=== PATIENT | female | born 1990 | race Caucasian/White ===

== ENCOUNTER 2022-01-04 06:58 | Emergency (ER) | payer OTHER ==
[~2022-01-04] VITALS: Ht 160 cm; Wt 88.4 kg
[~2022-01-04 06:58] MED LIST: IBUPROFEN400 MG PO; SEPTRA DS TABL1 EACH PO
[2022-01-04] MEDS ORDERED: PRENATAL MULTI1 EAC3 PO (07:21)
== END 2022-01-04 09:22 | disposition home or self-care (01) ==
LOC: ED 06:58
DX: M79.602 Pain in left arm (principal); M79.601 Pain in right arm; E87.6 Hypokalemia; F15.90 Other stimulant use, unspecified, uncomplicated; F17.200 Nicotine dependence, unspecified, uncomplicated; Z88.8 Allergy status to other drugs, medicaments and biological substances; Z91.011 Allergy to milk products; Z79.899 Other long term (current) drug therapy
CPT/HCPCS: 36415; 80053; 81001; 83735; 84702; 84703; 85025; 96374; 99283-25; J1885

== ENCOUNTER 2022-02-13 18:57 | Emergency (ER) | payer OTHER ==
[~2022-02-13] VITALS: Ht 160 cm; Wt 83.5 kg
[~2022-02-13 18:57] MED LIST changes: +PRENATAL MULTI1 EAC3 PO
[2022-02-13] MEDS ORDERED: HYDROCODON-ACE1 EA10 PO (22:48)
== END 2022-02-13 23:00 | disposition home or self-care (01) ==
LOC: ED 18:57
DX: R07.89 Other chest pain (principal); F17.200 Nicotine dependence, unspecified, uncomplicated; Z91.040 Latex allergy status; Z88.8 Allergy status to other drugs, medicaments and biological substances
CPT/HCPCS: 36415; 71046; 71260; 80048; 84703; 85025; 85379; 99285-25; J1885; Q9967

== ENCOUNTER 2022-04-22 21:03 | Emergency (ER) | payer OTHER ==
[~2022-04-22] VITALS: Ht 160 cm; Wt 81.8 kg
[~2022-04-22 21:03] MED LIST changes: +HYDROCODON-ACE1 EA10 PO
== END 2022-04-23 01:22 | disposition home or self-care (01) ==
LOC: ED 21:03
DX: T40.1X1A Poisoning by heroin, accidental (unintentional), initial encounter (principal); F17.200 Nicotine dependence, unspecified, uncomplicated; Z88.6 Allergy status to analgesic agent; Z91.040 Latex allergy status; Y92.9 Unspecified place or not applicable
CPT/HCPCS: 36415; 84703; 99284

== ENCOUNTER 2024-04-01 01:42 | Observation (INO) | payer OTHER ==
[~2024-04-01] VITALS: Ht 162.6 cm; Wt 82.6 kg
[2024-04-01] VITALS (13 sets, daily range): BP systolic 100–122; BP diastolic 58–90
[2024-04-01] MEDS ORDERED: SULFAMETHOXAZO1 EAC1 PO (02:02)
[2024-04-01] MEDS ORDERED: VANCOMYCIN HCL IV ONE (02:15)
[2024-04-01] MEDS ORDERED: DEXTROSE 5% IV ONE (02:15)
[2024-04-01 02:22] LABS: BASOPHILS 0.3 % (0-2); EOSINOPHILS 2.3 % (0-6); HEMATOCRIT 33.6 % (35.0-50.0); HEMOGLOBIN 11.4 g/dL (12.0-18.0); LYMPHOCYTES 32.9 % (24-44); MCH 30.5 (27-36); MCV 89.7 fl (81-99); MONOCYTES 7.4 % (0-12); NEUTROPHILS 57.1 % (39-80); PLATELET COUNT 311 K/uL (140-440); RBC 3.74 M/ul (4.3-5.7); RDW 15.1 (10.5-15.0)
[2024-04-01 02:39] LABS: ALBUMIN 3.3 g/dL (3.4-5.0); ALBUMIN/GLOBULIN RATIO 0.75 (1.1-2.4); ANION GAP 12.3 (7-21); BILIRUBIN, TOTAL 0.4 ng/dL (0.2-1.0); BUN/CREATININE RATIO 16.21 (6.0-28.6); CALCIUM 8.9 mg/dL (8.5-10.1); CREATININE, SERUM 0.74 mg/dL (0.55-1.02); POTASSIUM 3.3 mmol/L (3.5-5.1); PROTEIN, TOTAL 7.7 g/dL (6.4-8.2)
[2024-04-01 02:42] LABS: LACTIC ACID, BLOOD 0.5 mmol/L (0.4-2.0)
[2024-04-01] MEDS ORDERED: DEXTROSE 5% 500 ML IV ONE (02:49)
[2024-04-01 02:52] LABS: BILIRUBIN, URINE NEGATIVE (negative); BLOOD/HGB, URINE NEGATIVE (Negative); KETONE, URINE NEGATIVE (Negative); LEUK ESTERASE, URINE NEGATIVE (negative); NITRITE, URINE NEGATIVE (negative)
[2024-04-01 03:06] LABS: AMPHETAMINES, URINE POSITIVE (NEGATIVE); BARBITURATES, URINE NEGATIVE (NEGATIVE); BENZODIAZEPINE, URINE NEGATIVE (NEGATIVE); BUPRENORPHINE, URINE NEGATIVE (NEGATIVE); CANNABINOID, URINE NEGATIVE (NEGATIVE); COCAINE, URINE NEGATIVE (NEGATIVE); ECSTASY, URINE POSITIVE (NEGATIVE); FENTANYL, URINE POSITIVE (NEGATIVE); METHADONE, URINE NEGATIVE (NEGATIVE); OPIATES, URINE NEGATIVE (NEGATIVE); OXYCODONE, URINE NEGATIVE (NEGATIVE); PHENCYCLIDINE, URINE NEGATIVE (NEGATIVE)
[2024-04-01] MEDS ORDERED: LACTATED RINGER'S 1,000 ML IV SCH ×3 (04:00→09:00)
[2024-04-01] MEDS ORDERED: POTASSIUM CHLORIDE 10 MEQ TABCR PO ONE (04:00)
[2024-04-01] MEDS ORDERED: ondansetron HCL 4 MG/2 ML VIAL IV PRN ×3 (04:45→13:30)
[2024-04-01] MEDS ORDERED: MORPHINE SULFATE 10 MG/ML VIAL IV PRN ×2 (04:45→13:30)
[2024-04-01] MEDS ORDERED: ACETAMINOPHEN 500 MG TAB PO SCH (06:00)
[2024-04-01] MEDS ORDERED: MEROPENEM 1,000 MG in SODIUM CHLORIDE 0.9% 100 ML IV SCH (06:00)
--- NOTE | 2024-04-01 06:00 | NUR ---
smoke jumper supervisor notified of new med order for Merren on this admission
--- NOTE | 2024-04-01 06:19 | NUR ---
0520 - PT ADMITTED TO ROOM 108 FROM ER VIA STRETCHER, DROWSY BUT ANSERES TO NAME ONLY. ABLE TO TRANSFER FROM GOURNEY TO BED W/O HELP AND ONLY 2 CUES. GOES BACK TO SLEEP RIGHT AWAY. UNABLE TO COMPLETE SOME ADMIT QUESTIONS AT THIS TIME ANSWERED YES NO WUESTIONS ONLY DURING ASSESSMENT, SHE WOULD GO BACK TO SLEEP. ON ROOM AIR, CLEAR LUNGS, OBESE, R LOW ABD REDNESS, WARM AND TENDER TO TOUCH, CRATER LIKE ULCER WITH SS DRAINAGE PRESENT. PT KEPT SCRATCHING AND TOUCHING WOUND. ABD APPLIED ON AT NURSES DISCRETION TO PREVENT CROSS CONTAMINATION. PROCEDURE EXPLAINED, NO ANSWER, . IVF INFUSING RFA. AWARE OF NPO STATUS BUT UNKNOWN COMPREHENSION SHE ONLY ANSWERED "OK" WHEN INSTRUCTED ON NPO. PT WAS + FOR METH/FENTANYL AND EXSTASY PER ADMIT LABS. AWARE OF NAME ONLY AT THIS TIME, CLEAR TO SLURRY SPEECH PRESENT, OPENS EYES AND HAS TREMORS LIKE AND SITS UP IN BED WITH OPEN EYES THEN GOES BACK DOWN, NO TREMORS SOON HE TOUCHES THE BED, NO DISTRESS OR S/SX PAIN AT THIS TIME. npo EXCEPT MEDS, DID NOT PASS BEDSIDE SWALLOW EVALUATION AT [facility], SO WILL NOT BE GIVING HER 0600 SCHEDULE TYLENOL UNTIL PT MORE AWAKE, JUST KEPT MOUTH OPEN WHEN TRYING TO DO ORAL CARE. BED ALRM PER NURSING JUDGEMENT AT THIS TIME.
--- NOTE | 2024-04-01 07:10 | NUR ---
REPORT RECEIVED FROM SYDNEE VALENTINE. PT RESTING IN BED WITH EYES CLOSED, RR 18. ASSUMING CARE OF PT. CALL LIGHT WITHIN REACH.
--- NOTE | 2024-04-01 07:50 | NUR ---
PT IV BEEPING, PT SLEEPING WITH ARM BENT. PT ASKED TO TURN OVER AND STRAIGHTEN ARM IT WAS BENT AND UNABLE TO INFUSE ABX THAT ARE RUNNING. PT TURNED OVER AND WENT BACK TO SLEEP RIGHT AWAY. CALL LIGHT WITHIN REACH.
[2024-04-01] MEDS ORDERED: FAMOTIDINE 20 MG/ 2 ML VIAL IV SCH ×2 (09:00)
[2024-04-01] MEDS ORDERED: NICOTINE 21 MG/24 HR 1 EA TDSY TD SCH (09:00)
[2024-04-01] MEDS ORDERED: HYDROmorphone HCL 1 MG/ML SYR IV PRN (09:00)
--- NOTE | 2024-04-01 09:41 | NUR ---
PT APPEARS VERY DROWSY, AWAKENS TO TOUCH AND SOUND. PT STATES PAIN AROUND ABCESS IS 6/10, STATES SHE DOES NOT WANT ANY PAIN MEDICATION AT THIS TIME. PT A+O X4. PT HAS NOT AMBULATED YET THIS MORNING, JUMPS WHEN AWOKEN. ABDOMEN CONTINUES TO HAVE GENERALIZED SWELLING, REDNESS AROUND ABCESS, PT STATES ARE IS VERY TENDER TO TOUCH. PT UPDATED ON POC, VERBALIZES UNDERSTANDING. PT STATES NO FURTHER NEEDS AT THIS TIME, CALL LIGHT WIHTIN REACH.
--- NOTE | 2024-04-01 11:14 | NUR ---
CHG WIPEDOWN COMPLETE FOR PRE-OP. PT STATES SHE IS IN PAIN DURING WIPEDOWN, REFUSES PAIN MEDICATION. PT FALLS ASLEEP AFTER WIPEDOWN. CALL LIGHT WITHIN REACH.
[2024-04-01] MEDS ORDERED: propofoL 200 MG/20 ML VIAL ONE (12:04)
[2024-04-01] MEDS ORDERED: ondansetron HCL 4 MG/2 ML VIAL ONE (12:04)
[2024-04-01] MEDS ORDERED: LACTATED RINGER'S 1,000 ML IV ONE (12:04)
[2024-04-01] MEDS ORDERED: FAMOTIDINE 20 MG/ 2 ML VIAL ONE (12:04)
[2024-04-01] MEDS ORDERED: MIDAZOLAM HCL 2 MG/2 ML VIAL ONE (12:04)
[2024-04-01] MEDS ORDERED: METOCLOPRAMIDE HCL 10 MG/2 ML SDV ONE (12:04)
[2024-04-01] MEDS ORDERED: DEXAMETHASONE SOD PHOS 4 MG/ML VIAL ONE (12:04)
[2024-04-01] MEDS ORDERED: KETOROLAC TROMETHAMINE 30 MG/ML VIAL ONE (12:04)
[2024-04-01] MEDS ORDERED: fentaNYL citrate 100 MCG/2 ML VIAL ONE (12:04)
--- NOTE | 2024-04-01 12:20 | NUR ---
GAUGER CHIEF DELIVERY TO BEDSIDE. PT STATES ALL QUESTIONS HAVE BEEN ANSWERED AT THIS TIME. PT DENIES NEED FOR PAIN MEDICATION AT THIS TIME. CALL LIGHT WITHIN REACH.
--- NOTE | 2024-04-01 12:33 | NUR ---
DAY SURGERY TO FLOOR TO TAKE PT.
[2024-04-01] MEDS ORDERED: CIPROFLOXACIN 500 MG TAB PO SCH (13:28)
[2024-04-01] MEDS ORDERED: fentaNYL citrate 50 MCG/ML SDV IV PRN (13:30)
[2024-04-01] MEDS ORDERED: NALOXONE HCL 0.4 MG SYR IV PRN (13:30)
[2024-04-01] MEDS ORDERED: IBLOOD GLUCOSE TEST STRIP 1 EA TEST VI PRN (13:30)
[2024-04-01] MEDS ORDERED: droPERidol 5 MG/2 ML VIAL IV PRN (13:30)
[2024-04-01] MEDS ORDERED: METOCLOPRAMIDE HCL 10 MG/2 ML SDV IV PRN (13:30)
[2024-04-01] MEDS ORDERED: PROCHLORPERAZINE EDISYLATE 10 MG/2 ML VIAL IV PRN (13:30)
--- NOTE | 2024-04-01 13:32 | NUR ---
04/01/24 1332 Fanny Rosales 1319 PT ARRIVED IN PACU NON RESPONSIVE TO NOXIOUS STIMULI WITH OPA IN PLACE. CHIN LIFT HELD BY RN. 1324 PT REACTIVE. OPA REMOVED.
[2024-04-01] MEDS ORDERED: MEROPENEM 500 MG in SODIUM CHLORIDE 0.9% 100 ML IV SCH (14:00)
--- NOTE | 2024-04-01 14:15 | NUR ---
PT ARRIVES TO FLOOR WITH FIELD CARE COORDINATOR. RECEIVED REPORT ROSIE BURNS RN. PT APPEARS DROWSY, AWAKENS TO TOUCH. SCDs PLACED, CPOX IN PLACE. DRESSING ON RLQ C/D/I. PT STATES NO NEEDS AT THIS TIME, CALL LIGHT WITHIN REACH.
[2024-04-01] MEDS ORDERED: ACETAMINOPHEN 500 MG TAB PO PRN (14:30)
[2024-04-01] MEDS ORDERED: HYDROCODONE/ACETA 5/325 TAB PO PRN (14:30)
--- NOTE | 2024-04-01 14:51 | NUR ---
FAMILY AT THE BEDSIDE. PT AND FAMILY HAVE QUESTIONS ABOUT POC. FAMILY AND PT STATE ALL QUESTIONS HAVE BEEN ANSWERED. PT DENIES ANY CURRENT NEEDS, CALL LIGHT WITHIN REACH.
--- NOTE | 2024-04-01 15:20 | NUR ---
PT CONTINUES TO APPEAR TO BE DROWSY, RESPONDS TO TOUCH. PT STATES SHE DOES NOT FEEL ANY PRESSURE OR LIKE SHE NEEDS TO VOID AT THIS TIME. PT TAKES PO MEDICATION W/O DIFFICULTY. PT STATES NO FURTHER NEEDS AT THIS TIME, FALLS ASLEEP AFTER ANSWERING THIS RN'S QUESTIONS. CALL LIGHT WITHIN REACH.
--- NOTE | 2024-04-01 15:37 | NUR ---
PT ABLE TO AMBULATE TO BSC WITH SBA. VOIDS, AMBULATES TO BED WITH SBA.
--- NOTE | 2024-04-01 16:23 | NUR ---
PT EATS 100% OF SNACK, TOLERATES WELL. PT DENIES NAUSEA. PT RATES PAIN 7/10 AT THIS TIME, REFUSES PAIN MEDICATION. PT STATES NO FURTHER NEEDS, CALL LIGHT WITHIN REACH.
--- NOTE | 2024-04-01 16:38 | NUR ---
THIS RN SPEAKS WITH DR. MACDONALD ON THE TELEPHONE ABOUT LAB RESULTS. STATES NO NEW ORDERS AT THIS TIME.
[2024-04-01] MEDS ORDERED: metroNIDAZOLE 250 MG TAB PO SCH (17:00)
--- NOTE | 2024-04-01 17:08 | NUR ---
PT SITTING UP IN BED TO EAT DINNER, TAKES PO MEDICATION W/O DIFFICULTY. PT STATES SHE FEELS LIGHTHEADED, BP WNL, PT DENIES ANY OTHER SYMPTOMS AT THIS TIME. EDUCATION ON SITTING UP FOR THE FIRST TIME TODAY CONTRIBUTING TO LIGHTHEADEDNESS, PT VERBALIZES UNDERSTANDING. PT STATES NO FURTHER NEEDS AT THIS TIME, CALL LIGHT WITHIN REACH.
--- NOTE | 2024-04-01 17:46 | NUR ---
PT FINISHES DINNER TRAY. STATES PAIN IS 6/10, REQUESTS PRN NORCO, GIVEN 1 TABLET OF PRN NORCO 5MG/325MG. PT REQUESTS MORE ICE WATER AND WARM BLANKET, GIVEN. PT DENIES ANY OTHER NEEDS AT THIS TIME, CALL LIGHT WITHIN REACH.
--- NOTE | 2024-04-01 19:55 | NUR ---
REPORT RECEIVED FROM DAY RN. PATIENT IS RESTING IN BED WITH EYES CLOSED. RESPIRATIONS EVEN AND UNLABORED. PATIENT ARROUSES TO SOUND AND TOUCH. DENIES ANY PAIN AT THIS TIME. DRESSING TO RLQ REMAINS INTACT WITH MINIMIAL DRAINAGE SHODOWING. IVF INFUSING WITH NO ISSUES OR CONCERNS. CALL LIGHT WITHIN REACH.
--- NOTE | 2024-04-01 20:17 | NUR ---
PATIENT IS RESTING IN BED WITH EYES CLOSED. VSS. HS MEDICATIONS GIVEN. IVF RUNNING WITH NO ISSUES. IV SITE PATENT. PATIENT REQUESTING CRACKERS. CRACKERS GIVEN. LUNG SOUNDS CTA, BOWEL TONES PRESENT X [address] PL[address] DRESSING TO RLQ REMAIN INTACT WITH MINIMIAL SHADOWNING OF DRAINAGE AT THIS TIME. NO FURTHER NEEDS AT THIS TIME. CALL LIGHT WITHIN REACH.
[2024-04-01] MEDS ORDERED: FAMOTIDINE 20 MG TAB PO SCH (21:00)
--- NOTE | 2024-04-01 22:24 | NUR ---
IV PUMP ALARMING. DISTAL OCCLUSION. PATIENT ARM REPOSITIONED AND NO FURTHER ISSUES. NICOTINE PATCH REMOVED PER SCHEDULE. NO C/O PAIN. CALL LIGHT WITHIN REACH.
[2024-04-02 01:36] VITALS: BP 118/73
--- NOTE | 2024-04-02 01:41 | NUR ---
iv pump alarming, in room to assess. new bag lr infusing as directed, iv site wnl. vs collected and charted, primary rn remains in room to assist pt to bathroom. board also updated.
--- NOTE | 2024-04-02 01:59 | NUR ---
PATIENT OOB AND AMBULATED TO BATHROOM WITH 1 PA STAND BY ASSIST. TOLLERATED WELL. VOIDING QUANITY SUFFICIENT. VSS. C/O PAIN 08/01. PRN MEDICATION GIVEN. IV SITE PATENT. REQUESTING CRACKERS. CRACKERS GIVEN. SURGICAL SITE DRESSING REMAINS INTACT, WINDOW OF RED DRAINAGE ON DRESSING. ABD PAD SECURED WITH PAPER TAPE APPLIED OVER EXISTING DRESSING TO REINFORCE. NO FURTHER NEEDS AT THIS TIME. CALL LIGHT WITHIN REACH.
--- NOTE | 2024-04-02 03:58 | NUR ---
PATIENT RESTING IN BED WITH EYES CLOSED. RESPIRATIONS EVEN AND UNLABORED. CALL LIGHT WITHIN REACH.
[2024-04-02 05:29] VITALS: BP 104/68
[2024-04-02 05:31] VITALS: BP 104/68
--- NOTE | 2024-04-02 05:32 | NUR ---
PATIENT RESTING IN BED WITH EYES CLOSED. ARROUSES TO SOUND AND TOUCH. VSS. DRESSING TO RLQ REMAINS INTACT. NO DRAINAGE NOTED BREAKING THROUGH REINFORCED ABD PAD. NO C/O PAIN AT THIS TIME. NO FURTHER NEEDS CALL LIGHT WITHIN REACH.
[2024-04-02 05:33] LABS: BASOPHILS 0.3 % (0-2); EOSINOPHILS 1.8 % (0-6); HEMOGLOBIN 10.6 g/dL (12.0-18.0); LYMPHOCYTES 40.3 % (24-44); MCH 30.2 (27-36); MCHC 33.2 g/dl (30-36); MCV 90.9 fl (81-99); MONOCYTES 7.2 % (0-12); NEUTROPHILS 50.4 % (39-80); PLATELET COUNT 239 K/uL (140-440); RBC 3.53 M/ul (4.3-5.7); RDW 15.1 (10.5-15.0)
[2024-04-02 05:56] LABS: ALBUMIN 2.4 g/dL (3.4-5.0); ALBUMIN/GLOBULIN RATIO 0.67 (1.1-2.4); ANION GAP 12.8 (7-21); BILIRUBIN, TOTAL 0.3 ng/dL (0.2-1.0); BUN/CREATININE RATIO 11.76 (6.0-28.6); CALCIUM 7.7 mg/dL (8.5-10.1); CREATININE, SERUM 0.68 mg/dL (0.55-1.02); POTASSIUM 3.8 mmol/L (3.5-5.1)
--- NOTE | 2024-04-02 07:24 | NUR ---
PT RESTING SOUNDLY AT TIME OF SHIFT REPORT, LEFT UNDISTURBED. SATS 95% ON RA PT APPEARS COMFORTABLE AND RELAXED. CALL LIGHT AND NEEDED ITEMS AT BEDSIDE.
--- NOTE | 2024-04-02 08:35 | NUR ---
PT AWAKENED FOR MORNING MEAL. AMBULATES TO THE TOILET INDEPENDANTLY DECLINES OFFER OF CHAIR. SCD'S IN PLACE. PT INDICATES SHE IS "VERY SORE" PAIN MEDS ADMINISTERED WITH BREAKFAST. PERSONAL CARE ITEMS PLACED IN BATHROOM PT ENCOURAGED TO CALL FOR UP OUT OF BED.
--- NOTE | 2024-04-02 10:00 | NUR ---
PT RETURNS TO RESTING EYES CLOSED AFTER MORNING MEAL. ENCOURAGED HER TO GET UP OUT OF BED SHE INDICATES SHE WILL LATER, JUST WANTS TO REST AT THIS TIME.
--- NOTE | 2024-04-02 10:07 | NUR ---
RECORD INDICATES LAST BM THE . PT REPLIES "I DON'T KNOW" WHEN ASKED DATE OF LAST BM. NURSE INITIATED ORDERS MIRALAX AND SENNA. EDUCATION PROVIDED R/T SIDE EFFECTS OF OPOIDS PAIN MEDS UNDERSTANDING VERBALIZED
[2024-04-02] MEDS ORDERED: SENNOSIDES/DOCUSATE 1 EA TAB PO SCH (10:09)
[2024-04-02] MEDS ORDERED: POLYETHYLENE GLYCOL 3350 1 PACKET PO SCH (10:09)
[2024-04-02 11:05] VITALS: BP 128/78
--- NOTE | 2024-04-02 11:16 | NUR ---
PT RESTING IN BED TALKING TO THE FAMILY ON THE PHONE DENIES NEEDS
[2024-04-02] MEDS ORDERED: CIPROFLOXACIN500 MG PO (13:11)
[2024-04-02] MEDS ORDERED: ACETAMINOPHEN500 MG PO (13:12)
[2024-04-02] MEDS ORDERED: HYDROCODON-ACE1 EA10 PO (13:12)
--- NOTE | 2024-04-02 13:15 | NUR ---
DR MACDONALD IN TO SEE PT. DRESSING CHANGE DEMONSTRATED, INSTRUCTIONS FOR WOUND CARE PROVIDED, ALL QUESTIONS ANSWERED. PT VERBALIZES UNDERSTANDING.
--- NOTE | 2024-04-02 13:16 | OR ---
[facility] [address] [place], [place] [address] Signed DATE OF OPERATION: 04/01/2024 SURGEON: Chevy Macdonald MD PREOPERATIVE DIAGNOSES: 1. Opiate and methamphetamine substance abuse disorder. 2. Right lower abdominal wall necrotizing soft tissue infection. POSTOPERATIVE DIAGNOSES: 1. Opiate and methamphetamine substance abuse disorder. 2. Right lower abdominal wall necrotizing soft tissue infection. PROCEDURE: Excision and debridement of right lower abdominal wall fat and subcutaneous tissue 5 x 5 x 4 cm. ANESTHESIA: General LMA, Chevy Romero CRNA. INDICATIONS: This 34-year-old white woman has substance abuse problem of fentanyl use and methamphetamine. She was seen in an urgent care setting two days ago and prescribed Bactrim for a right lower abdominal wall soft tissue infection with cellulitic changes. Despite taking the medication, the problem has worsened and she presented to the emergency room in the supervisor final hours and was evaluated by Dr. Drake Trinidad, found to have necrosis of skin, dermis and subcutaneous tissue and a palpable mass approximately the size of a lemon in the right lower abdominal wall. A CT scan was performed, which showed no actual mass or undrained fluid collection and no sign of intra-abdominal process to account for the infection. Given her prior history of drug abuse, tox screen was obtained which showed her to be positive for methamphetamine, MDMA and fentanyl. The patient has been fluid resuscitated, started on IV antibiotic meropenem, now to undergo debridement of the wound. She understands the risk of bleeding, infection, and other unforeseen complications and wished to proceed. FINDINGS: The amount of necrotic tissue was relatively small with the skin and dermis about 2 cm at most. A dense mass associated with it was excised in continuity, which likely represented some early reactive fatty tissue. There was no sign of deep abscess proper, Electronically Signed By: CHEVY MACDONALD MD 04/02/24 1316 PATIENT NAME: AMADEO TEJADA OPERATIVE REPORT DATE OF : [birth year] REPORT #: [id number] PHYSICIAN: CHEVY MACDONALD MD PCP: STACY EDMONDSON PA-C REPORT IS CONFIDENTIAL AND NOT TO BE RELEASED WITHOUT AUTHORIZATION [facility] [address], [place] [address] Signed however. Complete excision was undertaken and the wound was packed with plain gauze for the time being. DESCRIPTION OF PROCEDURE: The patient was brought to the operating room, given a general LMA type anesthetic. Antibiotic meropenem had been given previously. The abdomen was prepared with a Betadine based solution and draped sterilely. Palpation of the wound showed a palpable mass about the size of a small lemon. Wide excision was undertaken of the skin to include the necrotic tissue. Dissection carried through the dermis, encountering inflamed somewhat dense fatty tissue. This was excised back to normal subcutaneous tissue and the area excised completely. It measured approximately 5 cm x 5 cm x 4 cm. Cultures were taken of the necrotic wound site itself. There was no evidence of ongoing infection in the remaining fatty tissue of the wound. Irrigation was undertaken and electrocautery used for hemostasis. The wound was then packed with a single Kerlix gauze for easy removal later. The patient was ultimately extubated and transferred to recovery room in good condition having suffered no complications. Sponge, needle, and instrument counts was correct x3. Chevy Macdonald MD JM/MODL /[id number] cc: Dr. Drake Edmondson PA-C Copies: STACY EDMONDSON PA-C ~ Electronically Signed By: CHEVY MACDONALD MD 04/02/24 1316 PATIENT NAME: AMADEO TEJADA ADVANCE OPERATIVE REPORT DATE OF : [birth year] REPORT #: [id number] PHYSICIAN: CHEVY MACDONALD MD PCP: STACY EDMONDSON PA-C REPORT IS CONFIDENTIAL AND NOT TO BE RELEASED WITHOUT AUTHORIZATION
--- NOTE | 2024-04-02 13:16 | HP ---
[facility] [address] [place], [place] [address] Signed ADMISSION DATE: 04/01/2024 REASON FOR ADMISSION: Opiate abuse and right lower abdominal wall necrotic skin lesion and underlying abscess. HISTORY OF PRESENT ILLNESS: This 34-year-old white woman has three children at home, now taken care of by their grandmother, who was admitted to the hospital after presentation in the emergency room and evaluation by Dr. Trinidad with erythema and soft tissue infection right anterior abdominal wall. Necrotic tissue and underlying abscess were considered likely. The patient denies any injection of substances into this area and thought that it started as a "spider bite." She was seen in an urgent care clinic two days ago and started on Bactrim DS, which she has been taking, but the pain and redness have worsened over the past two days. The initial infection did have spontaneous drainage of purulent material. She has had no fever or chills. PAST MEDICAL HISTORY: Most dominantly problematic for history of methamphetamine use and positive fentanyl on toxicology screen. She has had a tetanus shot in 2020. PAST SURGICAL HISTORY: Includes tonsillectomy and ear tubes. ALLERGIES: She has allergies to aspirin, latex (hives) and milk containing products. SOCIAL HISTORY: She has three children as previously noted. They are being cared for by her mother at this time. REVIEW OF SYSTEMS: She denies any shortness of breath or chest pain. She denies any fever or chills. PHYSICAL EXAMINATION: GENERAL: Arousable white woman who is most interested in sleeping at the present time. She shows no sign of systemic toxicity. VITAL SIGNS: Her temperature is 97.7, pulse 88, blood pressure is 110/71, O2 saturation 97%. NECK: Trachea is midline. CHEST: Clear. HEART: Regular without murmur. Electronically Signed By: CHEVY MACDONALD MD 04/02/24 1316 PATIENT NAME: AMADEO TEJADA HISTORY AND PHYSICAL DATE OF : [birth year] REPORT #: [id number] PHYSICIAN: CHEVY MACDONALD MD PCP: STACY DKUE PA-C REPORT IS CONFIDENTIAL AND NOT TO BE RELEASED WITHOUT AUTHORIZATION [facility] [address] [place], [place] [address] Signed ABDOMEN: There is an ulcerated lesion of the right lower abdominal area with some surrounding cellulitic changes and edema. Induration and ecchymosis are noted. There appears to be a 6 cm firm mass beneath all of this suggestive though not diagnostic of an abscess. EXTREMITIES: Show no clubbing, cyanosis, or edema. CT scan showed mild skin thickening in the lower anterior abdominal wall with fat stranding but without sign of fluid collection. This was performed at 4:30 in the morning. She has no intra-abdominal inflammatory foci, specifically no colitis or other problem. LABORATORY STUDIES: Show a white count of 5.9, hematocrit 33.6, platelets 311,000. Electrolytes essentially normal. Potassium is 3.3. ASSESSMENT: The patient has a soft tissue infection of right anterior abdominal wall, which may have an abscess or necrotic tissue beneath it. There is a palpable mass like finding. As the patient had been given antibiotics a few days ago, it is reasonably probable that there is an undrained fluid collection there despite the lack of finding on the CT scan. My review of the CT scan of the abdomen shows a normal liver and spleen with a probable cyst in the medial segment of left lobe of the liver and likely normal gallbladder. The area in which there is abnormality has a marker there and the subcutaneous tissue is surprisingly devoid of finding despite the thickened area in question. I would recommend exam under anesthesia, incision, drainage and debridement of the area. This may result in need for wound care of some type. She is already begun on antibiotic meropenem. Cultures would be obtained as well. I did discuss with her substance abuse issue. She does wish to be free of addiction, but most notably does have a positive tox screen for fentanyl and methamphetamine and resources for drug rehabilitation are uncertain. In the meantime, we will plan for operative incision and debridement of the lesion in question this morning. She has an IV in place and is otherwise prepared for operation. She understands the risk of bleeding, infection, failure to cure the problem, need for wound care, and so forth and wished to proceed. Chevy Macdonald MD Electronically Signed By: CHEVY MACDONALD MD 04/02/24 1316 PATIENT NAME: AMADEO TEJADA HISTORY AND PHYSICAL DATE OF : [birth year] REPORT #: [id number] PHYSICIAN: CHEVY MACDONALD MD PCP: STACY DUKE PA-C REPORT IS CONFIDENTIAL AND NOT TO BE RELEASED WITHOUT AUTHORIZATION [address] [address] Signed AUDREY/JONATHAN /[id number] cc: LESLI Gamboa Dr. Copies: STACY DUKE PA-C ~ Electronically Signed By: CHEVY MACDONALD MD 04/02/24 1316 PATIENT NAME: AMADEO TEJADA ERIKA HISTORY AND PHYSICAL DATE OF : [birth year] REPORT #: [id number] PHYSICIAN: CHEVY MACDONALD MD PCP: STACY DUKE PA-C REPORT IS CONFIDENTIAL AND NOT TO BE RELEASED WITHOUT AUTHORIZATION
[2024-04-02] MEDS ORDERED: NALOXONE 4 MG NASAL SPRAY #2 HOME.PACK NAS ONE (13:45)
--- NOTE | 2024-04-02 14:07 | NUR ---
DC INSTRUCTIONS REVIEWED. PT MOTHER IS PRESENT VERBLAIZES UNDERSTANDING OF S/S OF INFECTION AND WOUND CARE INSTRUCTIONS PROVIDED TO PT. QUESTIONS DENIED. PT GATHERS PERSONAL ITEMS HERSELF SCANS ROOM FOR ANYTHING FORGOTTEN
--- NOTE | 2024-04-09 12:51 | EKG ---
[facility] [address] [facility] [place] [address] Signed Normal sinus rhythm Normal ECG When compared with ECG of 02-OCT-2021 15:32, No significant change was found Confirmed by HITESH HOFFMANN MD ([id number]) on 04/09/2024 12:51:08 PM Electronically Signed By: HITESH HOFFMANN 04/09/24 1251 PATIENT NAME: AMADEO TEJADA [place] Electrocardiogram DATE OF : [birth year] PHYSICIAN: HITESH HOFFMANN REPORT #: [id number] REPORT IS CONFIDENTIAL AND NOT TO BE RELEASED WITHOUT AUTHORIZATION
--- NOTE | 2024-04-10 08:51 | PATH ---
[facility] [address] [place], [place] [address] Signed SPECIMEN(S): A RIGHT ABDOMEN WALL ABSCESS SPECIMEN SOURCE: A. RIGHT ABDOMEN WALL ABSCESS CLINICAL HISTORY: Cellulitis/abscess FINAL PATHOLOGIC DIAGNOSIS: Skin and soft tissue, right abdominal wall: - Abscess with panniculitis and reactive fibrosis - Scattered chronic inflammation with focal vague granulomas. - Stains for organisms are positive for gram positive cocci. - Stains for acid fast and fungal organisms are negative. - No malignancy identified. COMMENT: Correlation with cultures is required. A diagnostic alert is initiated by Dr Curry KUNZ MICROSCOPIC EXAMINATION: Histologic sections of all submitted blocks are examined by light microscopy. These findings, together with the gross examination, support the pathologic diagnosis. GROSS DESCRIPTION: The specimen, labeled and designated "Sinan right abdominal wall abscess," is received in formalin and consists of irregular shaped yellow-perez, fibroadipose tissue that measures 4.0 x 3.8 x 1.7 cm with attached irregular shaped skin tissue fragment that measures 2.7 x 0.4 cm. Sectioning through the specimen to reveal pink-perez, focally congested and partially friable tissue. Health Information Coder sections are submitted in (A1). JS (under the direct supervision of a pathologist) The Gross Description was prepared using a voice recognition system. The report was reviewed for accuracy; however, sound-alike word errors, addition and/or deletions may occur. If there is any question about this report, please contact Client Services. ADDITIONAL NOTES: PATIENT NAME: AMADEO TEJADA ERIKA PATHOLOGY DATE OF : [birth year] REPORT #: [id number] PHYSICIAN: ANTHONY MORENO PCP: STACY DUKE PA-C REPORT IS CONFIDENTIAL AND NOT TO BE RELEASED WITHOUT AUTHORIZATION [facility] [address] [place], [place] [address] Signed Immunohistochemical and/or in situ hybridization studies if performed in this case included appropriate positive controls that reacted as expected. This test was developed and its performance characteristics determined by [facility]. It has not been cleared or approved by the U.S. Food and Drug Administration. The FDA has determined that such clearance or approval is not necessary. This test is used for clinical purposes. It should not be regarded as investigational or for research. [facility] is certified under the Clinical Laboratory Improvement Amendments of 1988 (CLIA) as qualified to perform high complexity clinical laboratory testing. PERFORMING LABORATORY: Technical component was performed by [facility], [address] [place] [id number] (CLIA# [id number]). Professional interpretation was performed by [facility], [address] [place] [id number] (CLIA#: [id number]). Diagnostician: David Zapien MD Pathologist Electronically Signed 04/10/2024 Copies: ~ PATIENT NAME: GENESIS TEJADAANNA YADIEL JAMES PATHOLOGY DATE OF : [birth year] REPORT #: [id number] PHYSICIAN: ANTHONY MORENO PCP: STACY DUKE PA-C REPORT IS CONFIDENTIAL AND NOT TO BE RELEASED WITHOUT AUTHORIZATION
== END 2024-04-02 13:55 | disposition home or self-care (01) ==
LOC: ED 01:42 → MS 01:43
PROVIDERS: Internal Medicine; ADMIT Surgery; ATTEND Surgery
PROC: 0JB80ZZ Excision of Abdomen Subcutaneous Tissue and Fascia, Open Approach (ICD-10-PCS; principal; 2024-04-01 12:57)
DX: M79.89 Other specified soft tissue disorders (principal); F15.10 Other stimulant abuse, uncomplicated; F11.10 Opioid abuse, uncomplicated; F17.210 Nicotine dependence, cigarettes, uncomplicated; Z88.6 Allergy status to analgesic agent; Z79.899 Other long term (current) drug therapy
CPT/HCPCS: 00800; 36415; 74177; 80053; 80307; 81003; 83036; 83605; 84703; 85025; 87040; 87070; 87075; 87077; 87186; 87205; 88304; 88312; 93005; 93010; 96365; 96366; 96375; 99284-25; G0378; J1100; J1885; J2185; J2250; J2405; J2704; J2765; J3010; J3370; J3490; J7060; J7121; Q9967

== ENCOUNTER 2025-09-03 23:54 | Emergency (ER) | payer OTHER ==
[~2025-09-03] VITALS: Ht 160 cm; Wt 94.0 kg
[~2025-09-03 23:54] MED LIST changes: +ACETAMINOPHEN500 MG PO; +CIPROFLOXACIN500 MG PO; +SULFAMETHOXAZO1 EAC1 PO
[2025-09-04] MEDS ORDERED: LACTATED RINGER'S 1,000 ML IV ONE (00:15)
[2025-09-04 00:36] LABS: BASOPHILS 0.2 % (0.1-1.2); EOSINOPHILS 2.7 % (0.7-5.8); LYMPHOCYTES 36.5 % (19.3-51.7); MCH 30.4 PG (25.6-32.2); MCHC 33.2 g/dL (32.2-35.5); MCV 91.4 fL (79.4-94.8); MONOCYTES 7.3 % (4.7-12.5); NEUTROPHILS 53.1 % (34.0-71.1); RBC 3.95 M/uL (3.93-5.22)
[2025-09-04 01:02] LABS: ALT (SGPT) 700 U/L (14-59); AST (SGOT) 122 U/L (15-37); GLOMERULAR FILTRATION RATE,EST 118 mL/min (>60); TSH, 3RD GENERATION 9.790 uIU/mL (0.358-3.740); UREA NITROGEN 9 mg/dL (7-18)
[2025-09-04 01:14] LABS: PROTEIN, TOTAL 7.2 g/dL (6.4-8.2)
[2025-09-04] MEDS ORDERED: NALOXONE 4 MG NASAL SPRAY #2 HOME.PACK NAS ONE (02:00)
[2025-09-04 02:37] VITALS: BP 142/86
--- NOTE | 2025-09-04 15:10 | EKG ---
[facility] [address] [facility] [place], [place] [address] Signed Sinus tachycardia Otherwise normal ECG Confirmed by HITESH OHFFMANN MD ([id number]) on 09/04/2025 3:10:34 PM Electronically Signed By: HITESH HOFFMANN 09/04/25 1510 PATIENT NAME: AMADEO ESCALONA WALHALLA Electrocardiogram DATE OF : [birth year] PHYSICIAN: HITESH HOFFMANN REPORT #: [id number] REPORT IS CONFIDENTIAL AND NOT TO BE RELEASED WITHOUT AUTHORIZATION
== END 2025-09-04 02:38 | disposition home or self-care (01) ==
LOC: ED 23:54
PROVIDERS: Internal Medicine
DX: T40.411A Poisoning by fentanyl or fentanyl analogs, accidental (unintentional), initial encounter (principal); R74.8 Abnormal levels of other serum enzymes; S00.83XA Contusion of other part of head, initial encounter; F17.200 Nicotine dependence, unspecified, uncomplicated; Z88.6 Allergy status to analgesic agent; Z91.0110 Allergy to milk products, unspecified; Z91.040 Latex allergy status; W19.XXXA Unspecified fall, initial encounter
CPT/HCPCS: 36415; 70450; 71045; 80053; 80307; 83735; 84443; 84484; 84703; 85025; 93005; 93010; 99285-25; G0480; J3490